=== PATIENT | female | born 1980 | race Hispanic/Latino ===

== ENCOUNTER 2018-03-25 07:56 | Inpatient (IN) | payer BC, OTHER ==
[2018-03-25 08:06] VITALS: BMI 27.1
[2018-03-25] MEDS ORDERED: Oxytocin 30 UNIT 30 UNITS/500 ML BAG IV ONE ×3 (08:22→15:46)
[2018-03-25] MEDS ORDERED: Lactated Ringer's 1,000 ML IV ONE (08:22)
[2018-03-25 08:53] LABS: BASO # 0.1 K/uL (0.0-0.2); BASO % 0.6 % (0.0-2.0); EOS # 0.1 K/uL (0.0-0.7); EOS % 0.7 % (0.0-4.0); HEMOGLOBIN 10.1 g/dL (12.0-16.0); LYMPH # 2.3 K/uL (1.0-4.3); LYMPH % 21.7 % (20.0-40.0); MEAN CELL VOLUME 86.6 fl (81.0-99.0); MEAN CORPUSCULAR HEMOGLOBIN 28.4 pg (27.0-31.0); MEAN CORPUSCULAR HGB CONC 32.8 g/dL (33.0-37.0); MEAN PLATELET VOLUME 9.4 fl (7.2-11.7); MONO # 0.6 K/uL (0.0-0.8); MONO % 5.6 % (0.0-10.0); NEUT # 7.6 K/uL (1.8-7.0); NEUT % 71.4 % (50.0-75.0); NRBC % 0.1 % (0.0-0.0); RBC 3.58 Mil/uL (3.80-5.20); RED CELL DISTRIBUTION WIDTH 14.2 % (11.5-14.5); WHITE BLOOD COUNT 10.6 K/uL (4.8-10.8)
[2018-03-25] MEDS ORDERED: Lidocaine 1% Inj (20ml) ONE (09:36)
--- NOTE | 2018-03-25 12:00 | OBHP ---
Datetime: 03/25/2018 09:07 IP Adm Impression: Term, intrauterine IP Admit Plan: Admit to unit; Initiate labor induction protocol Admit Comment, IP Provider: HPI: Lety is a 37 year old at 39.6 here for IOL secondary to AMA s tatus. GLO of 03/26/18 based on LMP of 07/01/17 and IVF conception. Denies any vaginal bleeding or LOF , good movement, occasional contractions. History 1 previous in 2012, no complications, term 2 SABs Current conceived using IVF PMH Rosa thyroiditis PSH Denies Medications Synthroid 81mcg Allergies NKDA Social Denies any drug, alcohol or tobacco use OBJECTIVE See exam section labs:O+, Ab neg, Hep B neg, HIV/RPR neg, Rubella immune ASSESSMENT/PLAN: 37 year old here for IOL at 39.6 due to IVF conception and AMA - Given her favorable cervical plan is for AROM and then pitocin augmentation if necessary - Vertex presentation confirmed with US - Last growth US showed appropriate EFW - Adequate pelvis by exam, anticipate vaginal delivery Nell Montgomery MD OB Fellow She was seen with the resident I agree with the note Abdomen - PN: Normal Lungs - PN: Normal Heart - PN: Normal HEENT - PN: Normal General - PN: Normal Presentation-Admit: Vertex FHR - Baseline A Provider: 150 Membranes, Provider: Intact Contraction Comments Provider: Q6-8 Gestation - Est Wks by US: 39.6 Vital Signs Provider: Reviewed; Within Normal Limits IP Indication for Induction Oth: AMA NICHD Variability Prov Fetus A: Moderate 6-25bpm NICHD Accel Fetus A IP Provider: [id number] FHR Category Provider Fetus A: Category I NICHD Decel Fetus A IP Provider: None Dilatation, Provider: 2 Effacement, Provider: 90 Station, Provider: -2
[2018-03-25] MEDS: Lactated Ringer's 1,000 ML IV SCH ×3 (15:42→23:59)
[2018-03-25] MEDS ORDERED: Fentanyl/Bupivacaine HCl 250 ML EPI ONE (15:50)
[2018-03-25] MEDS ORDERED: OXYTOCIN/0.9 % NS 20 UNIT/1,000 ML BAG IV SCH (16:00)
--- NOTE | 2018-03-25 18:58 | OBPN ---
Datetime: 03/25/2018 15:30 IP Informed Consent Obtain: Vaginal Delivery; Induction of Labor IP Procedures: Sterile Vag Exam IP Progress Plan: Continue present management; Augmentation Membranes, Provider: Ruptured Amniotic Fluid Color, Provider: Clear Contraction Comments Provider: Q2-4 min FHR - Baseline A Provider: 145 Gestation - Est Wks by US: 39.6 Presentation-Admit: Vertex IP Progress Note Comment: Patient reports contractions are stronger now, feeling some pelvic pressur e EFM: Category II A/P: 1. Cervical exam has not progressed much since AROM, starting pitocin @ 6 units for augmentation/i nduction 2. EFM: Category II due to occasional variables, pitocin augmentation is still appropriate, will c ontinue to observe 3. Patient would like epidural 4. Planning for vaginal delivery Nell Montgomery MD OB Fellow Vital Signs Provider: Reviewed; Within Normal Limits NICHD Accel Fetus A IP Provider: 15X15 FHR Category Provider Fetus A: Category II NICHD Variability Prov Fetus A: Moderate 6-25bpm Dilatation, Provider: 3 Effacement, Provider: 90 Station, Provider: -2 NICHD Decel Fetus A IP Provider: Variable
[2018-03-26] MEDS ORDERED: Lidocaine 2% PF (10 ml) Amp ONE (01:07)
[2018-03-26] MEDS ORDERED: Bupivacaine HCl 0.5% PF (30 ml) Inj ONE (01:08)
[2018-03-26] MEDS ORDERED: Morphine 5 mg/10 ml preservative-free Inj(Duramorph) ONE (01:10)
--- NOTE | 2018-03-26 01:12 | OBPN ---
Datetime: 03/26/2018 01:09 IP Progress Impression: Non-reassuring heart rate IP Informed Consent Obtain: Section Delivery IP Progress Plan: Deliver- Section IP Progress Note Comment: Patient noted to have tachycardia notified by RN patient evaluated b edside Cervical exam presenting part was not vertex bedside sonogram revealed transverse lie Informed consent was obtained for primary section discussed risks benefits alternatives t o surgery Patient and partner agreed to plan of care
[2018-03-26] MEDS ORDERED: ePHEDrine 50 mg/ml Inj ONE (01:19)
[2018-03-26] MEDS ORDERED: ceFAZolin 2 GM in Sodium Chloride 0.9% 100 ML IVPB ONE (01:20)
[2018-03-26] MEDS ORDERED: ceFAZolin IV 2 gm in Dextrose 2 GM/50 ML BAG IVPB ONE ×2 (01:22→01:30)
[2018-03-26] MEDS: Lactated Ringer's 1,000 ML IV SCH (02:17)
[2018-03-26] MEDS ORDERED: Oxycodone/Acetaminophen 5/325 mg Tab PO PRN ×3 (02:19→06:44)
[2018-03-26] MEDS ORDERED: Simethicone 80 mg Chewtab PO SCH (04:00)
[2018-03-26] MEDS: Levothyroxine 100 MCG TAB PO SCH (07:47)
[2018-03-26] MEDS ORDERED: Multivitamin With Minerals Tab PO SCH (09:00)
[2018-03-26 09:19] VITALS: O2SAT 98
[2018-03-26] MEDS: Multivitamin With Minerals Tab PO SCH (10:05)
[2018-03-26] MEDS: Simethicone 80 mg Chewtab PO SCH ×3 (10:15→21:45)
[2018-03-26 11:11] LABS: MEAN CELL VOLUME 86.5 fl (81.0-99.0); MEAN CORPUSCULAR HEMOGLOBIN 27.6 pg (27.0-31.0); MEAN CORPUSCULAR HGB CONC 31.9 g/dL (33.0-37.0); RBC 2.71 Mil/uL (3.80-5.20); RED CELL DISTRIBUTION WIDTH 14.4 % (11.5-14.5)
[2018-03-26 11:12] LABS: HEMOGLOBIN 7.5 g/dL (12.0-16.0)
[2018-03-26] MEDS: Oxycodone/Acetaminophen 5/325 mg Tab PO PRN (18:26)
[2018-03-27] MEDS: Oxycodone/Acetaminophen 5/325 mg Tab PO PRN ×4 (02:14→14:51)
[2018-03-27] MEDS: Simethicone 80 mg Chewtab PO SCH ×5 (03:35→22:02)
[2018-03-27] MEDS: Levothyroxine 100 MCG TAB PO SCH (06:23)
[2018-03-27] MEDS ORDERED: Levothyroxine 100 MCG TAB PO SCH (06:30)
--- NOTE | 2018-03-27 07:14 | OP ---
PROCEDURE DATE: 03/26/2018 PREOPERATIVE DIAGNOSIS: Transverse lie. POSTOPERATIVE DIAGNOSIS: Transverse lie. OPERATION PERFORMED: Primary low flap transverse section via Pfannenstiel skin incision. SURGEON: Dione Carmichael MD PLATFORM CONSULTANT: Dr. Nell Montgomery, she was helpful in creating exposure, obtaining hemostasis, delivery of the baby and closure of the patient. Procedure would not be possible without her assistance. ANESTHESIA: Epidural. ANESTHESIOLOGIST: Administered by Dr. Edy Mendiola. ESTIMATED BLOOD LOSS: 800 mL. URINE OUTPUT: Blunt catheter put out approximately 300 mL of clear urine. INTRAVENOUS FLUIDS: The patient received approximately 1 L of D5 LR intraoperatively. OPERATIVE FINDINGS: Baby boy, transverse lie, back up, weight 4340 g, 9 pounds 9 ounces. Apgars 9 and 9. Normal uterus, tubes, and ovaries were identified. DESCRIPTION OF PROCEDURE: After informed consent was obtained, the patient was taken to the operating room where she had epidural anesthesia. She was prepped and draped with a leftward tilt. A Pfannenstiel skin incision was then made with the scalpel and carried down to the underlying layer of fascia. The fascia was nicked in the midline. The fascial incision was then extended laterally with the curved Swain scissors. The superior aspect of the fascial incision was then grasped with Nicolás clamps, elevated up, and the rectus muscles were dissected off using both sharp and blunt dissection. Attention was then turned to the inferior aspect of the fascial incision, which in similar fashion was grasped with Nicolás clamps, elevated up, and the rectus muscles were dissected off using both sharp and blunt dissection. The rectus muscles were then in the midline. The peritoneum identified and entered sharply with the Metzenbaum scissors. Peritoneal incision was then extended superiorly and inferiorly with good visualization of the bladder. The bladder blade was then inserted. The vesicouterine peritoneum was identified and entered sharply with the Metzenbaum scissors. Incision was then extended laterally. The bladder flap was created digitally. The bladder blade was then reinserted and lower transverse incision was made with the scalpel. The infant was then noted to be transverse lie, back up. The baby was delivered from vertex. Baby was rotated, delivered from the vertex presentation. The nose and mouth were suctioned with DeLee suction trap. The cord was clamped and cut. The was handed off to awaiting pediatricians. The placenta was then removed manually. The uterus was exteriorized and cleared of all clots and debris. The uterine incision was repaired with #0 Vicryl in a running locked fashion. A second layer of the same suture was used to obtain excellent hemostasis. The abdomen was then copiously irrigated. The irrigant was removed with a suction device. The uterus was returned to the abdomen. The gutters were then cleared of all clots and debris. The uterine incision was re-examined and noted to be hemostatic. Peritoneum was then closed with 2-0 Vicryl in a running fashion. The muscle was reapproximated with 0 Vicryl in an interrupted fashion. The fascia was closed with 0 Vicryl in a running fashion. The skin was closed with 4-0 on a Zhang needle. All sponge, lap, needle, and instrument counts were correct x2 and the patient was taken to recovery room in awake and stable condition. Dione Carmichael MD
--- NOTE | 2018-03-27 07:43 | OBPPN ---
Datetime: 03/27/2018 07:40 PP Pain Prov: Within normal limits PP Nausea Prov: Denies PP Flatus Prov: No PP Abdomen/Uterus Prov: Normal PP Lochia Prov: Normal PP Extremities Prov: Normal PP Comments Phys Exam Prov: Bandage in place PP Impression Prov: Normal progression PP Plan Prov: Continue present management PP Progress Note Prov: POD 1 s/p primary c/s for transverse presentation Continue current management Vital Signs Provider PP: Reviewed
[2018-03-27] MEDS: Multivitamin With Minerals Tab PO SCH (08:44)
[2018-03-28] MEDS: Simethicone 80 mg Chewtab PO SCH ×4 (03:50→21:04)
[2018-03-28] MEDS: Levothyroxine 100 MCG TAB PO SCH (06:42)
[2018-03-28] MEDS: Multivitamin With Minerals Tab PO SCH (08:52)
[2018-03-29] MEDS: Simethicone 80 mg Chewtab PO SCH ×2 (03:36→09:16)
[2018-03-29] MEDS: Levothyroxine 100 MCG TAB PO SCH (06:21)
[2018-03-29] MEDS: Multivitamin With Minerals Tab PO SCH ×2 (08:27→08:30)
--- NOTE | 2018-03-29 10:43 | OBPPN ---
Datetime: 03/29/2018 10:40 PP Pain Prov: Within normal limits PP Nausea Prov: Denies PP Flatus Prov: Yes PP BM Prov: Yes PP Abdomen/Uterus Prov: Normal PP Lochia Prov: Normal PP Extremities Prov: Normal PP C/S Incision Prov: Normal PP Comments Phys Exam Prov: Incision: intact w/ steri strips PP Impression Prov: Normal progression PP Plan Prov: Discharge PP Progress Note Prov: POD 3 s/p primary c/s for transverse presntation, doing well, breast and marcy le feeding Pt c/o constipation, rx'd Dulcolax suppository this am Rx's motrin, percocet and Slow Fe given Discharge home today Vital Signs Provider PP: Reviewed
--- NOTE | 2018-03-29 10:59 | OBDCSUM ---
Datetime: 03/29/2018 10:21 Discharged to, Provider: Home Follow up at, Provider: [facility] Disch Instr Activity: May Shower Disch Instr Diet: Regular Discharge Instructions, Provider: Routine instructions given Discharge Diagnosis, Provider: Term Delivered Discharge Time: 03/29/2018 12:00 Follow up in weeks, Provider: 1 week Disch Referrals: None Contraception discussed, Prov: No Disch Activity Restrictions: No lifting; No driving; No sexual activity; Nothing in vagina - Interco urse, tampons, douche
[2018-03-29 18:56] VITALS: BP 115/74; PULSE 69; RESP 20; TEMP 98
== END 2018-03-29 13:15 | disposition home or self-care (01) | DRG 788 ==
LOC: H.L&D 08:22 → H.OB/GYN 03-26 06:20
PROVIDERS: ADMIT Obstetrics & Gynecology Gynecology; ATTEND Obstetrics & Gynecology Gynecology
PROC: 4A1HXCZ Monitoring of Products of Conception, Cardiac Rate, External Approach (ICD-10-PCS; 2018-03-25)
PROC: 10D00Z1 Extraction of Products of Conception, Low, Open Approach (ICD-10-PCS; principal; 2018-03-26)
DX: O76 Abnormality in fetal heart rate and rhythm complicating labor and delivery (principal); O32.2XX0 Maternal care for transverse and oblique lie, not applicable or unspecified; Z3A.40 40 weeks gestation of pregnancy; Z37.0 Single live birth; E06.3 Autoimmune thyroiditis; Z3A.39 39 weeks gestation of pregnancy; O99.284 Endocrine, nutritional and metabolic diseases complicating childbirth